=== PATIENT | female | born 1950 | race African-American/Black ===

== ENCOUNTER 2024-08-11 12:55 | Outpatient (CLI) | payer MEDICARE, OTHER | END 2024-08-11 12:56 | disposition home or self-care (01) | LOC: CSHDTY/OP 12:55 | PROVIDERS: ATTEND Nurse Practitioner Family | DX: Z71.3 Dietary counseling and surveillance (principal); E66.9 Obesity, unspecified; E11.9 Type 2 diabetes mellitus without complications; Z98.84 Bariatric surgery status; Z79.85 Long-term (current) use of injectable non-insulin antidiabetic drugs | CPT/HCPCS: 97802 ==

== ENCOUNTER 2025-05-10 19:15 | Emergency (ER) | payer OTHER ==
[2025-05-10] MEDS ORDERED: HYDROcodone/Acetaminophen 5/325 mg Tablet ONE (21:00)
== END 2025-05-10 22:01 | disposition home or self-care (01) ==
LOC: CSHERS 19:15
DX: M25.562 Pain in left knee (principal); I10 Essential (primary) hypertension; W01.10XA Fall on same level from slipping, tripping and stumbling with subsequent striking against unspecified object, initial encounter
CPT/HCPCS: 99283